=== PATIENT | female | born 1970 | race Caucasian/White ===

== ENCOUNTER 2020-11-25 02:37 | Emergency (ER) | payer MEDICAID ==
[~2020-11-25] VITALS: Ht 160 cm; Wt 53.0 kg
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
[2020-11-25 04:08] LABS: CLUE CELLS PRESENT (NONE SEEN)
[2020-11-25 04:11] LABS: WET PREP WBCS FEW (FEW)
[2020-11-25 05:23] VITALS: BP 152/85
== END 2020-11-25 05:32 | disposition home or self-care (01) ==
LOC: ED 04:40
DX: A59.01 Trichomonal vulvovaginitis (principal); A56.02 Chlamydial vulvovaginitis; A54.9 Gonococcal infection, unspecified; N73.0 Acute parametritis and pelvic cellulitis; F15.129 Other stimulant abuse with intoxication, unspecified; F41.9 Anxiety disorder, unspecified; I10 Essential (primary) hypertension; F17.200 Nicotine dependence, unspecified, uncomplicated
CPT/HCPCS: 87210; 87491; 87591; 87808; 99284

== ENCOUNTER 2020-12-04 17:28 | Emergency (ER) | payer MEDICAID ==
[~2020-12-04] VITALS: Ht 160 cm; Wt 53.5 kg
--- NOTE | 2020-12-04 17:47 | NUR ---
PT BIB EMS FOR POSSIBLE UTI. PT RECENTLY SEEN AT [facility] FOR STD CAUSING VAGINITIS. PT C/O SHARP LOWER ABD PAIN, SHOULDER PAIN, LOWER BACK PAIN, NAUSEA, AND INCREASED URINARY FREQUENCY. PT NOT EXPERIENCING PAIN AT THIS TIME.
[2020-12-04 18:31] LABS: BASOPHILS % (AUTO) 1 % (0-1); EOSINOPHILS % (AUTO) 2 % (1-7); LYMPHOCYTES % (AUTO) 36 % (22-44); MEAN CORPUSCULAR HEMOGLOBIN 30.3 pg (27.0-34.8); MEAN CORPUSCULAR HGB CONC 32.6 g/dL (32.4-35.8); MEAN PLATELET VOLUME 8.8 fL (7.4-10.4); MONOCYTES % (AUTO) 11 % (2-9); NEUTROPHILS % (AUTO) 50 % (42-75); PLATELET COUNT 307 x10^3/uL (130-400); RED BLOOD COUNT 4.53 x10^6/uL (3.82-5.3); RED CELL DISTRIBUTION WIDTH 14.5 % (9.6-15.2)
[2020-12-04 18:31] LABS: MICROSCOPIC NOT IND
[2020-12-04 18:33] LABS: MD NO
[2020-12-04 18:41] LABS: ALBUMIN 3.5 g/dL (3.4-5.0); ANION GAP 5 mmol/L (5-15); CALCIUM 8.7 mg/dL (8.5-10.1); CHLORIDE 104 mmol/L (98-107); CREATININE 0.66 mg/dL (0.55-1.02)
--- NOTE | 2020-12-04 18:49 | NUR ---
REPORT FROM VERONICA RN, PT CARE TRANSFERRED AT THIS TIME. PT RESTING ON GU[place]AIL, NAD, APPEARS COMFORTABLE, NO CHANGE IN CONDITION, BED IN LOWEST, RAILS ENGAGED, CALL LIGHT ON LAP, WCTM. WAITING FOR LAB RESULTS.
[2020-12-04] MEDS ORDERED: PROPRANOLOL PO (19:02)
[2020-12-04] MEDS ORDERED: LISI-170 PO (19:02)
[2020-12-04 19:50] VITALS: BP 137/89
--- NOTE | 2020-12-04 19:50 | NUR ---
Patient given discharge instructions and they have confirmed that they understand the instructions. Patient ambulatory with steady gait. nad, denies additional needs, all questions answered appropriately. no personal belongings left in room after dc
--- NOTE | 2020-12-04 19:57 | NUR ---
pt also provided taxi voucher for dc
--- NOTE | 2020-12-04 20:09 | NUR ---
pt reports concern about bp screening, erp aware, no new orders at this time. pt informed to continue taking her previously prescribed medications for bp at this time.
== END 2020-12-04 20:10 | disposition home or self-care (01) ==
LOC: ED 19:45
DX: R10.30 Lower abdominal pain, unspecified (principal); M54.9 Dorsalgia, unspecified; R11.0 Nausea; I10 Essential (primary) hypertension; F17.200 Nicotine dependence, unspecified, uncomplicated
CPT/HCPCS: 36415; 80048; 81003; 82040; 85025; 99283

== ENCOUNTER 2020-12-05 10:48 | Emergency (ER) | payer MEDICAID ==
[~2020-12-05] VITALS: Ht 160 cm; Wt 55.6 kg
[~2020-12-05 10:48] MED LIST: LISI-170 PO; PROPRANOLOL PO
[2020-12-05 12:15] VITALS: BP 142/91
--- NOTE | 2020-12-05 12:18 | NUR ---
PT AMBULATORY TO ROOM 28 W/ C/O DIAZ SECONDARY TO HTN. STATES IT STARTED LAST NIGHT. PT STATES DIAZ CAUSES PHOTOPHOBIA. PT STATES WHEN HER BP GETS HIGH SHE GETS DIAZ. WAS HERE LAST NIGHT FOR SIMILAR SX. PT STATES SHE TOOK HER LISINOPRIL AND PROPANOLOL THIS AM W/O RELIEF. PT RESTING ON GenomedRNEY. MONITORS APPLIED. MARIAMA. VSS.
--- NOTE | 2020-12-05 12:48 | NUR ---
REPORT GIVEN TO JEREMIAH GALEAS.
--- NOTE | 2020-12-05 12:56 | NUR ---
PT AND PT BELONGINGS NOT IN ROOM. BP CUFF AND PULSE OX SITTING ON GURNEY. PT NOT IN BATHROOM. PT KOBI. NOTIFIED.
[2020-12-05] MEDS ORDERED: ACETAMINOPHEN 500 MG TABLET PO ONE (13:00)
== END 2020-12-05 12:58 | disposition left against medical advice (07) ==
LOC: ED 12:50
DX: G44.209 Tension-type headache, unspecified, not intractable (principal); I10 Essential (primary) hypertension; H92.09 Otalgia, unspecified ear
CPT/HCPCS: 99281; 99282

== ENCOUNTER 2021-01-09 14:31 | Emergency (ER) | payer MEDICAID ==
[~2021-01-09] VITALS: Ht 160 cm; Wt 50.0 kg
--- NOTE | 2021-01-09 14:46 | NUR ---
PT BIB EMS FOR FB (ANT) IN MEDIAL ASPECT OF LEFT EYE. PATIENT STATES THAT SHE HAS REMOVED SOME OF THE ANT'S BODY AND EMS ATTEMPTED TO REMOVE THE REMAINDER BUT WERE UNSUCCESSFUL.
--- NOTE | 2021-01-09 14:59 | NUR ---
REPORT TAKEN FROM RN BILL. AWAITING PROVIDER AND ORDERS AT THIS TIME.
--- NOTE | 2021-01-09 15:14 | NUR ---
ELADIO CANAS AT BEDSIDE FOR [place] ADMIN AND FB EXTRACTION.
--- NOTE | 2021-01-09 15:29 | NUR ---
ELADIO MARINONE UNABLE TO EXTRICATE FB FROM EYE, TECH INSTRUCTED TO IRRIGATE EYE WITH SALINE SOLUTION BY EDCONNOR.
[2021-01-09] MEDS ORDERED: FLUORESCEIN/BENOXINATE 5 ML DROPS OP ONE (15:30)
--- NOTE | 2021-01-09 16:04 | NUR ---
EDT UNABLE TO IRRIGATE ANT FRAGMENT OUT OF PT'S EYE, PT EXAMINED BY NAGA GILLIS MD TO ATTEMPT EXTRICATION. PT A&O, RESPS EVEN AND UNLABORED, CALM AND COOPERATIVE AT THIS TIME.
[2021-01-09 16:21] VITALS: BP 173/115
--- NOTE | 2021-01-09 16:36 | NUR ---
ELADIO CANAS NOTIFIED BP 173/115, PT SLEEPING. WHEN AWAKENED PT DENIES PAIN. NO ORDERS RECEIVED. NO IS A&O, RESPS EVEN AND UNLABORED, NADN.
--- NOTE | 2021-01-09 16:39 | NUR ---
ANT FRAGMENT REMOVED FROM PT'S EYE BY MD GILLIS.
--- NOTE | 2021-01-09 17:22 | NUR ---
Patient given discharge instructions and they have confirmed that they understand the instructions. Patient ambulatory with steady gait.
== END 2021-01-09 17:24 | disposition home or self-care (01) ==
LOC: ED 16:36
DX: T15.12XA Foreign body in conjunctival sac, left eye, initial encounter (principal); I10 Essential (primary) hypertension; F17.210 Nicotine dependence, cigarettes, uncomplicated; X58.XXXA Exposure to other specified factors, initial encounter; Y93.89 Activity, other specified; Y92.89 Other specified places as the place of occurrence of the external cause; Y99.8 Other external cause status
CPT/HCPCS: 65205; 99284; 99406

== ENCOUNTER 2021-01-10 15:19 | Emergency (ER) | payer MEDICAID ==
[~2021-01-10] VITALS: Ht 160 cm; Wt 50.0 kg
[2021-01-10 15:25] VITALS: BP 154/112
== END 2021-01-10 16:00 | disposition home or self-care (01) ==
LOC: ED 15:30
DX: H57.12 Ocular pain, left eye (principal); Z76.0 Encounter for issue of repeat prescription; I10 Essential (primary) hypertension
CPT/HCPCS: 99281

== ENCOUNTER 2021-03-31 10:52 | Emergency (ER) | payer MEDICAID ==
[~2021-03-31] VITALS: Ht 160 cm; Wt 51.2 kg
[2021-03-31 11:49] LABS: BASOPHILS % (AUTO) 1 % (0-1); EOSINOPHILS % (AUTO) 1 % (1-7); LYMPHOCYTES % (AUTO) 29 % (22-44); MEAN CORPUSCULAR HEMOGLOBIN 30.7 pg (27.0-34.8); MEAN CORPUSCULAR HGB CONC 33.2 g/dL (32.4-35.8); MEAN PLATELET VOLUME 8.6 fL (7.4-10.4); MONOCYTES % (AUTO) 13 % (2-9); NEUTROPHILS % (AUTO) 57 % (42-75); PLATELET COUNT 344 x10^3/uL (130-400); RED BLOOD COUNT 4.48 x10^6/uL (3.82-5.3); RED CELL DISTRIBUTION WIDTH 14.5 % (9.6-15.2)
[2021-03-31 12:01] LABS: ALANINE AMINOTRANSFERASE 26 U/L (12-78); ALBUMIN 3.6 g/dL (3.4-5.0); ANION GAP 4 mmol/L (5-15); CALCIUM 9.2 mg/dL (8.5-10.1); CHLORIDE 111 mmol/L (98-107); CREATININE 0.72 mg/dL (0.55-1.02)
[2021-03-31 12:03] LABS: ALKALINE PHOSPHATASE 66 U/L (45-117); BILIRUBIN,TOTAL 0.8 mg/dL (0.2-1.0); TOTAL PROTEIN 7.4 g/dL (6.4-8.2)
--- NOTE | 2021-03-31 12:57 | NUR ---
GRUBBER: PT TO ROOM FROM LOBBY
--- NOTE | 2021-03-31 13:32 | NUR ---
PT SPEAKING AND RAMBLING ON TOPICS WITH RN. PT FINISHED EATING HALF A SANDWICH WHEN RN WALKED IN. RN ADVISED PT NPO UNTIL NOTIFIED BY MD. PT AWARE OF NEED FOR UA.
[2021-03-31] MEDS ORDERED: MAGNESIUM CITRATE 300ML ORAL SOL PO ONE (14:00)
[2021-03-31] MEDS ORDERED: BISACODYL 10 MG SUPP PR PRN (14:00)
[2021-03-31] MEDS ORDERED: MAGNESIUM CITRATE 300ML ORAL SOL ONE (14:10)
[2021-03-31] MEDS ORDERED: BISACODYL 10 MG SUPP ONE (14:10)
--- NOTE | 2021-03-31 14:50 | NUR ---
PT HAD TORN OFF ARM BAND "I DON'T KNOW WHERE IT IS. MAYBE I THREW IT AWAY." NEW ARM BAND PLACED. PT EDUCATED ON NEED TO KEEP ARM BAND ON AT ALL TIMES. NAD NOTED. PT FALLS ASLEEP EASILY IN BED.
--- NOTE | 2021-03-31 15:08 | NUR ---
REPORT TO JEREMIAH FORBES. PT ENCOURAGED TO CONTINUE SIPPING MAG CITRATE.
--- NOTE | 2021-03-31 15:11 | NUR ---
Report from JEREMIAH Salas. This RN to assume care.
--- NOTE | 2021-03-31 16:00 | NUR ---
Patient states the mag citrate is "very lemony." Encouraged patient to continue to take sips until completed.
[2021-03-31 17:26] VITALS: BP 175/112
--- NOTE | 2021-03-31 17:34 | NUR ---
Patient remains HTN. ERP aware. Patient has a hx of same and noncompliance with meds. RX to be given for HTN meds upon dc.
--- NOTE | 2021-03-31 18:01 | NUR ---
Discharge instructions given. All questions and concerns addressed. Patient states, "I will sit here and wake up and finish this drink and if I don't have diarrhea, I will leave." Advised patient that she has had multiple hours to finish her drink and that she could take it with her. Patient became angry, yelling at this RN. Advised patient [facility] is available for tranportation. Patient ambulatory with a steady gait. Belongings with patient.
--- NOTE | 2021-03-31 18:20 | NUR ---
Patient continues to be angry. She gathered her belongings and walked out.
== END 2021-03-31 18:27 | disposition home or self-care (01) ==
LOC: ED 13:19
DX: R10.84 Generalized abdominal pain (principal); I10 Essential (primary) hypertension; F15.20 Other stimulant dependence, uncomplicated; F17.200 Nicotine dependence, unspecified, uncomplicated
CPT/HCPCS: 36415; 74022; 80053; 83690; 85025; 99284

== ENCOUNTER 2021-05-03 21:50 | Emergency (ER) | payer MEDICAID ==
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
[2021-05-03 22:43] LABS: MICROSCOPIC INDICATED
[2021-05-03 22:45] LABS: BASOPHILS % (AUTO) 1 % (0-1); EOSINOPHILS % (AUTO) 2 % (1-7); LYMPHOCYTES % (AUTO) 35 % (22-44); MEAN CORPUSCULAR HEMOGLOBIN 30.1 pg (27.0-34.8); MEAN CORPUSCULAR HGB CONC 33.6 g/dL (32.4-35.8); MEAN PLATELET VOLUME 8.3 fL (7.4-10.4); MONOCYTES % (AUTO) 17 % (2-9); NEUTROPHILS % (AUTO) 45 % (42-75); PLATELET COUNT 317 x10^3/uL (130-400); RED BLOOD COUNT 4.23 x10^6/uL (3.82-5.3); RED CELL DISTRIBUTION WIDTH 14.4 % (9.6-15.2)
[2021-05-03 22:49] LABS: ALANINE AMINOTRANSFERASE 33 U/L (12-78); ANION GAP 6 mmol/L (5-15); CALCIUM 8.6 mg/dL (8.5-10.1); CHLORIDE 103 mmol/L (98-107); CREATININE 0.66 mg/dL (0.55-1.02)
[2021-05-03 22:54] LABS: ALKALINE PHOSPHATASE 120 U/L (45-117); BILIRUBIN,TOTAL 0.6 mg/dL (0.2-1.0); TOTAL PROTEIN 7.4 g/dL (6.4-8.2)
--- NOTE | 2021-05-03 23:03 | NUR ---
Pt refusing vital signs at this time
--- NOTE | 2021-05-03 23:13 | NUR ---
[employer] at bedside
--- NOTE | 2021-05-04 00:01 | NUR ---
Pt denied SART from [employer]
--- NOTE | 2021-05-04 00:12 | NUR ---
Pelvic exam complete by ERP, foul smelling black colored tampon removed, pt tolerated well
[2021-05-04 01:29] VITALS: BP 128/77
--- NOTE | 2021-05-04 02:07 | NUR ---
Pt asked about plan for safe dc and suggested a [facility] for pt, pt stated that she does not want to go to our place and will create a safe plan for herself.
--- NOTE | 2021-05-04 03:04 | NUR ---
pt unable to create safe plan, agrees to dc to our place. taxi voucher provided for safe dc to our place.
== END 2021-05-04 03:08 | disposition home or self-care (01) ==
LOC: ED 22:20
DX: T19.2XXA Foreign body in vulva and vagina, initial encounter (principal); N92.4 Excessive bleeding in the premenopausal period; D25.0 Submucous leiomyoma of uterus; N94.89 Other specified conditions associated with female genital organs and menstrual cycle; F17.210 Nicotine dependence, cigarettes, uncomplicated; I10 Essential (primary) hypertension; Y04.8XXA Assault by other bodily force, initial encounter; Y93.89 Activity, other specified; Y92.89 Other specified places as the place of occurrence of the external cause; Y99.8 Other external cause status
CPT/HCPCS: 36415; 76830; 80053; 81001; 84703; 85025; 87086; 99406

== ENCOUNTER 2021-06-09 00:03 | Emergency (ER) | payer MEDICAID ==
[~2021-06-09] VITALS: Ht 167.6 cm; Wt 55.0 kg
[2021-06-09 00:20] VITALS: BP 150/101
== END 2021-06-09 00:42 | disposition home or self-care (01) ==
LOC: ED 00:05
DX: H69.83 Other specified disorders of Eustachian tube, bilateral (principal); F15.10 Other stimulant abuse, uncomplicated; F17.210 Nicotine dependence, cigarettes, uncomplicated; I10 Essential (primary) hypertension
CPT/HCPCS: 99283; 99406